=== PATIENT | male | born 1965 | race Two or more races ===

== ENCOUNTER 2017-02-15 02:57 | Emergency (ER) | payer OTHER ==
[2017-02-15 03:57] LABS: PH,URINE 6.5 (5.0-8.0); SPECIFIC GRAVITY 1.015 (1.001-1.030); URINE BILIRUBIN NEGATIVE (NEGATIVE); URINE BLOOD 3+ (NEGATIVE); URINE GLUCOSE (UA) NEGATIVE (NEGATIVE); URINE LEUKOCYTE ESTERASE NEGATIVE (NEGATIVE); URINE NITRITE NEGATIVE (NEGATIVE); URINE PROTEIN TRACE (NEGATIVE); URINE UROBILINOGEN NORMAL (0-1 mg/dl)
[2017-02-15 04:03] LABS: URINE APPEARANCE CLEAR; URINE COLOR YELLOW
[2017-02-15 04:13] LABS: URINE EPITHELIAL CELLS 0-2 /hpf; URINE WBC NEG /hpf
[2017-02-15 04:14] LABS: URINE BACTERIA 0
[2017-02-15] MEDS ORDERED: KETOROLAC TROMETHAMINE 15 MG/ML VIAL ONE (04:20)
[2017-02-15] MEDS ORDERED: PROCHLORPERAZINE 5 MG/ML 2 ML VIAL ONE (04:20)
[2017-02-15] MEDS ORDERED: MORPHINE SULFATE 4 MG/ML SYRINGE ONE (04:21)
[2017-02-15 04:29] LABS: ABSOLUTE NEUTROPHIL COUNT 8.5 K/mm3 (1.8-7.7); BASO % 0.4 % (0.2-1.0); EOS # 0.1 (0.0-0.5); EOS % 0.6 % (0.9-2.9); HEMATOCRIT 42.5 % (32.0-52.0); HEMOGLOBIN 14.6 gm/l (14.0-18.0); IMM NEUT% 0.3 % (0-1); LYMPH # 1.6 (1.0-4.8); LYMPH % 14.5 % (15-45); MEAN CELL VOLUME 89.9 fl (80.0-94.0); MEAN CORPUSCULAR HEMOGLOBIN 30.9 pg (27.0-31.0); MEAN CORPUSCULAR HGB CONC 34.4 g/dl (33.0-37.0); MEAN PLATELET VOLUME 8.9 fl (7.4-10.4); MONO # 0.7 (0.0-0.8); NEUT % 78.2 % (43-75); PLATELET COUNT 283 K/mm3 (130-400); RED CELL DISTRIBUTION WIDTH 12.2 % (11.5-14.5)
[2017-02-15 05:40] LABS: CALCIUM 9.6 mg/dL (8.6-10.3)
--- NOTE | 2017-02-15 07:23 | CT ---
Exam Type: ABD/PELVIS W/O CON Date and Time: 02/15/2017 4:16 AM Clinical information: Right flank pain. Comparison: None Procedure: Imaging device: [employer] Aquilion [address] scanner 1 mm axial images were obtained through the abdomen and pelvis. Stacked reconstructed 3, 4 and 5 mm images were photographed in the axial coronal and sagittal planes. No oral contrast was utilized for this examination. Exam: Without intravenous contrast. FINDINGS: Lung bases:The visualized lung bases appear to be appropriate with no mass, effusion or consolidation visualized. Liver: the liver is homogeneous with no discrete abnormality visualized. No definite findings of biliary dilatation are observed. Spleen: The spleen is homogeneous and does not appear to be enlarged. Gallbladder: Normal without enlargement or evidence of adjacent inflammatory changes. Pancreas: Normal without enlargement or evidence of adjacent inflammatory changes. Adrenal glands: Normal without enlargement or evidence of adjacent inflammatory changes. Abdominal aorta: The aorta is of normal caliber and appears to be without significant atherosclerotic disease. Kidneys: The kidneys are of slightly asymmetric size. The right kidney is larger than the left. There is mild right-sided hydronephrosis present with prominence of the right ureter. Within the distal right ureter and there is evidence of a 5.1 mm ureteral calculus located just proximal to the ureterovesicular junction. The left ureter appears to be appropriate. Bowel structures: The visualized bowel is of normal caliber without evidence of dilatation or obstruction. No free fluid or mesenteric inflammatory changes are identified. Appendix: The appendix is well-visualized and appears to be of normal caliber. No periappendiceal inflammatory changes or CT findings of appendicitis are currently observed. Bladder: Partially decompressed. Hernia: Small fat filled bilateral inguinal hernias are present, left greater than right. Adenopathy: No significant enlarged adenopathy is visualized. Osseous structures: Multilevel thoracic and lumbar degenerative changes are present. There is bilateral spondylolysis of L5 with grade 1 anterolisthesis of L5 on S1. Pelvic structures: No discrete pelvic abnormalities are visualized in this examination. IMPRESSION: 1. A 5.1 mm right-sided distal ureteral calculus located just proximal to the ureterovesicular junction with mild associated right-sided hydronephrosis. 2. A normal appearance of the appendix without CT evidence of appendicitis. 3. Multilevel thoracic and lumbar degenerative changes. 4. 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 5. Bilateral fat filled inguinal hernias, left greater than right. The findings were called to the emergency room at 0614 hours, 02/15/2017, by [facility].
--- NOTE | 2017-02-15 07:26 | RAD ---
ABDOMEN OR KUB HISTORY: Right ureteral calculus. COMPARISONS: CT stone study examination of the same day. FINDINGS: Supine views of the abdomen demonstrate air and stool scattered throughout nondilated large bowel. The abdominal bowel gas pattern is unremarkable. There is a subtle calcific focus seen on the right inferior lateral margin of the sacrum which likely corresponds to the ureteral calculus seen on prior CT examination. The finding is somewhat subtle however. Multilevel lumbar degenerative changes are present. IMPRESSION: 1. An unremarkable abdominal bowel gas pattern with a moderate quantity of stool seen throughout the colon. 2. A subtle calcific focus along the inferior lateral right margin of the sacrum which may correspond to the known distal right ureteral calculus seen on CT examination. 3. Multilevel lumbar degenerative changes.
== END 2017-02-15 06:30 | disposition home or self-care (01) ==
LOC: ED 02:57
DX: N20.0 Calculus of kidney (principal); I10 Essential (primary) hypertension